=== PATIENT | male | born 1965 | race Caucasian/White ===

== ENCOUNTER 2022-03-02 20:29 | Emergency (ER) | payer OTHER ==
[2022-03-02 20:56] LABS: HEMOGLOBIN 15.4 gm/dl (14.0-17.5); RED BLOOD COUNT 4.91 M/UL (4.20-5.50); WHITE BLOOD COUNT 15.9 K/UL (4.5-11.0)
[2022-03-02 21:14] LABS: BUN/CREATININE RATIO 20 (0-10)
== END 2022-03-03 02:30 | disposition short-term general hospital (02) ==
LOC: ER1 20:29
PROVIDERS: Physician Assistant Medical
DX: K25.9 Gastric ulcer, unspecified as acute or chronic, without hemorrhage or perforation (principal); I51.9 Heart disease, unspecified; F17.200 Nicotine dependence, unspecified, uncomplicated; Z20.822 Contact with and (suspected) exposure to COVID-19
CPT/HCPCS: 80053; 81001; 83690; 85025; 96374; 96375; 99285; C9113; J2270; J2405; Q9967; U0002